=== PATIENT | male | born 1995 | race Two or more races ===

== ENCOUNTER 2017-08-13 11:42 | Emergency (ER) | payer OTHER ==
[~2017-08-13] VITALS: Ht 160 cm; Wt 79.4 kg
== END 2017-08-13 16:52 | disposition home or self-care (01) ==
LOC: ER 11:42
DX: K52.9 Noninfective gastroenteritis and colitis, unspecified (principal)

== ENCOUNTER 2018-06-24 18:34 | Emergency (ER) | payer OTHER ==
[~2018-06-24] VITALS: Ht 162.6 cm; Wt 79.4 kg
== END 2018-06-24 22:28 | disposition home or self-care (01) ==
LOC: ER 18:34
DX: M54.5 Low back pain (principal)

== ENCOUNTER → 2018-12-21 | Emergency (ER) | payer OTHER ==
[~2018-12-21] VITALS: Ht 162.6 cm; Wt 74.8 kg
[~2018-12-21] MED LIST: KETO10TA2 PO
== END | disposition home or self-care (01) ==
LOC: ER 02:00
DX: M79.641 Pain in right hand (principal); M79.644 Pain in right finger(s)

== ENCOUNTER 2019-05-03 19:59 | Emergency (ER) | payer OTHER ==
[~2019-05-03] VITALS: Ht 162.6 cm; Wt 80.3 kg
== END 2019-05-03 23:11 | disposition home or self-care (01) ==
LOC: ER 19:59
DX: J35.01 Chronic tonsillitis (principal)

== ENCOUNTER 2019-05-04 23:54 | Emergency (ER) | payer OTHER ==
[~2019-05-04] VITALS: Ht 162.6 cm; Wt 80.3 kg
[2019-05-05] MEDS ORDERED: MOBIC7.5 MG PO ×2 (12:10)
[2019-05-05] MEDS ORDERED: PROTONIX40 MG PO ×2 (12:10)
[2019-05-05] MEDS ORDERED: NORFLEX100MG PO ×2 (12:10)
[2019-05-05] MEDS ORDERED: PEPCID AC20 MG PO ×2 (12:10)
== END 2019-05-05 12:47 | disposition home or self-care (01) ==
LOC: ER 23:54
DX: N39.0 Urinary tract infection, site not specified (principal); M54.5 Low back pain; R50.9 Fever, unspecified

== ENCOUNTER 2019-10-28 20:34 | Emergency (ER) | payer OTHER ==
[~2019-10-28] VITALS: Ht 162.6 cm; Wt 81.6 kg
[~2019-10-28 20:34] MED LIST changes: +MOBIC7.5 MG PO; +NORFLEX100MG PO; +PEPCID AC20 MG PO; +PROTONIX40 MG PO
== END 2019-10-28 22:10 | disposition home or self-care (01) ==
LOC: ER 20:34
DX: S33.5XXA Sprain of ligaments of lumbar spine, initial encounter (principal); X50.0XXA Overexertion from strenuous movement or load, initial encounter; Y93.F9 Activity, other caregiving; Y92.238 Other place in hospital as the place of occurrence of the external cause; Y99.8 Other external cause status

== ENCOUNTER 2019-12-29 06:51 | Emergency (ER) | payer OTHER ==
[~2019-12-29] VITALS: Ht 162.6 cm; Wt 81.6 kg
[2019-12-29] MEDS ORDERED: ZITHROMAX500 MG PO (09:21)
[2019-12-29] MEDS ORDERED: CLARITIN-D 121 EACH PO (09:21)
== END 2019-12-29 09:28 | disposition home or self-care (01) ==
LOC: ER 06:51
DX: J06.9 Acute upper respiratory infection, unspecified (principal); Z03.818 Encounter for observation for suspected exposure to other biological agents ruled out

== ENCOUNTER 2020-01-01 10:20 | Emergency (ER) | payer OTHER ==
[~2020-01-01] VITALS: Ht 165.1 cm; Wt 81.6 kg
[~2020-01-01 10:20] MED LIST changes: +CLARITIN-D 121 EACH PO; +ZITHROMAX500 MG PO
[2020-01-01] MEDS ORDERED: STRIBILD TABLE1 EACH PO (10:56)
== END 2020-01-01 11:05 | disposition home or self-care (01) ==
LOC: ER 10:20
DX: S61.442A Puncture wound with foreign body of left hand, initial encounter (principal); W46.0XXA Contact with hypodermic needle, initial encounter; Y93.89 Activity, other specified; Y92.69 Other specified industrial and construction area as the place of occurrence of the external cause; Y99.8 Other external cause status

== ENCOUNTER 2021-06-23 16:36 | Emergency (ER) | payer OTHER ==
[~2021-06-23] VITALS: Ht 162.6 cm; Wt 86.2 kg
[~2021-06-23 16:36] MED LIST changes: +STRIBILD TABLE1 EACH PO
[2021-06-23] MEDS ORDERED: CIPRO500 MG PO (22:55)
== END 2021-06-23 23:10 | disposition home or self-care (01) ==
LOC: ER 16:36
DX: R10.9 Unspecified abdominal pain (principal)